=== PATIENT | female | born 1980 | race Caucasian/White ===

== ENCOUNTER 2019-10-23 11:49 | Inpatient (IN) | payer OTHER ==
[~2019-10-23] VITALS: Ht 165.1 cm; Wt 113.4 kg
[2019-12-04] MEDS ORDERED: PRENATAL TABLE1 EAC2 PO (06:51)
[2019-12-04] MEDS ORDERED: OSTERA TABLET1 EACH PO (06:52)
== END 2019-12-07 16:49 | disposition home or self-care (01) | DRG 788 ==
LOC: LDR 11-30 11:45 → O/R 12-04 14:07 → SURG-SUITE 12-04 15:23
PROVIDERS: ADMIT Obstetrics & Gynecology; ATTEND Obstetrics & Gynecology
PROC: 4A1HXFZ Monitoring of Products of Conception, Cardiac Rhythm, External Approach (ICD-10-PCS; 2019-12-04)
PROC: 3E033VJ Introduction of Other Hormone into Peripheral Vein, Percutaneous Approach (ICD-10-PCS; 2019-12-04)
PROC: 10D00Z1 Extraction of Products of Conception, Low, Open Approach (ICD-10-PCS; principal; 2019-12-04 13:00)
DX: O33.9 Maternal care for disproportion, unspecified (principal); O24.420 Gestational diabetes mellitus in childbirth, diet controlled; Z3A.40 40 weeks gestation of pregnancy; Z37.0 Single live birth; Z20.828 Contact with and (suspected) exposure to other viral communicable diseases